=== PATIENT | female | born 1985 | race Hispanic/Latino ===

== ENCOUNTER 2020-02-03 20:31 | Emergency (ER) | payer SELFPAY ==
[~2020-02-03] VITALS: Ht 147.3 cm; Wt 77.0 kg
[2020-02-03 23:05] LABS: HEMATOCRIT 36.9 % (37.0-47.0); IMMATURE GRANULOCYTES 0.4 % (0.0-5.0); MEAN CELL VOLUME 92.9 fL CALC (80.0-100.0); MEAN CORPUSCULAR HGB 30.2 pG CALC (26.0-32.0); MEAN CORPUSCULAR HGB CONC 32.5 g/dL CAL (32.0-36.0); NEUT# 7.14 thou/uL (2.00-7.15); RED BLOOD COUNT 3.97 mill/uL (4.20-5.60)
[2020-02-03 23:19] LABS: ALBUMIN 4.3 g/dL (3.2-5.0); ALKALINE PHOSPHATASE 65 u/l (38-126); ANION GAP 13 (6-22 (CALC)); BILIRUBIN, TOTAL 0.2 mg/dL (0.0-1.4); BUN 11 mg/dL (7-17); BUN/CREATININE RATIO 15 (12-20 (CALC)); CARBON DIOXIDE 23 mmol/l (22-30); CHLORIDE 106 mmol/l (95-108); CREATININE 0.7 mg/dL (0.5-1.0); GFR > 60 ML/MIN (>=60 (CALC)); GFR FOR AFR.AMER. > 60 ML/MIN (>=60 (CALC)); POTASSIUM 3.8 mmol/l (3.5-5.1); SGOT/AST 25 u/l (14-36); SODIUM 138 mmol/l (137-146); TOTAL PROTEIN 7.4 g/dL (6.3-8.2)
[2020-02-03 23:34] LABS: URINE BILIRUBIN - DIPSTICK NEGATIVE (NEGATIVE); URINE BLOOD DIPSTICK LARGE (NEGATIVE); URINE GLUCOSE - DIPSTICK NEGATIVE (NEGATIVE); URINE KETONE NEGATIVE (NEGATIVE); URINE NITRITE - DIPSTICK NEGATIVE (Negative); URINE PH 6.5 (4.5-8.0); URINE PROTEIN - DIPSTICK 100 mg/dL (NEG-TRACE); URINE SPECIFIC GRAVITY 1.025; URINE UROBILINOGEN - DIPSTICK 0.2 E.U./dL (0.2)
[2020-02-03 23:35] LABS: BETA-HCG, QUANT(RESULT NUMBER) 46 mIU/mL
[2020-02-03 23:36] LABS: URINE LEUK ESTERASE NEGATIVE (NEGATIVE); URINE RBC >100 RBC/hpf (0-5)
[2020-02-03 23:37] LABS: URINE BACTERIA MODERATE hpf; URINE EPITHELIAL CELLS FEW EPI/hpf (0-FEW)
[2020-02-03 23:38] LABS: URINE COLOR RED
[2020-02-04] MEDS ORDERED: AMOXICILLIN500 M2 PO (02:54)
[2020-02-04 03:25] VITALS: BP 120/78
== END 2020-02-04 03:25 | disposition home or self-care (01) | DRG 832 ==
LOC: ED 20:31
PROVIDERS: Emergency Medicine
DX: O20.9 Hemorrhage in early pregnancy, unspecified (principal); O23.41 Unspecified infection of urinary tract in pregnancy, first trimester; O09.11 Supervision of pregnancy with history of ectopic pregnancy, first trimester; Z3A.01 Less than 8 weeks gestation of pregnancy